=== PATIENT | female | born 1970 ===

== ENCOUNTER 2024-06-09 16:56 | Emergency (ER) | payer OTHER ==
[~2024-06-09] VITALS: Ht 172.7 cm; Wt 143.2 kg
[~2024-06-09 16:56] MED LIST: LEVO-72 PO; PERCT PO
[2024-06-09] MEDS: METHOCARBAMOL 500 MG TABLET PO ONE (23:27)
[2024-06-09] MEDS: LIDOCAINE 5% TRANSDERMAL PATCH TD ONE (23:27)
[2024-06-09] MEDS: ACETAMINOPHEN 500 MG TABLET PO ONE (23:27)
[2024-06-09] MEDS: KETOROLAC TROMETHAMINE 30 MG/ML VIAL IM ONE (23:28)
[2024-06-09 23:30] VITALS: BP 148/77; PULSE 75; RESP 18; TEMP 97.9; O2SAT 99
[2024-06-10] MEDS ORDERED: DIAZ-328 PO (00:53)
== END 2024-06-10 01:14 | disposition home or self-care (01) ==
LOC: EMS 16:56
DX: M54.41 Lumbago with sciatica, right side (principal); Z87.891 Personal history of nicotine dependence; Z90.710 Acquired absence of both cervix and uterus; Z98.890 Other specified postprocedural states
CPT/HCPCS: 99284; 96372; J1885